=== PATIENT | female | born 1960 | race Caucasian/White ===

== ENCOUNTER → 2024-11-21 06:36 | Outpatient (REF) | payer MEDICARE, OTHER, SELFPAY | LOC: PAVMRI 06:36 | PROVIDERS: ATTENDING PHYSICIAN Physician Assistant; FAMILY PHYSICIAN Family Medicine Geriatric Medicine | DX: M54.16 Radiculopathy, lumbar region (principal) | CPT/HCPCS: 72148 ==

== ENCOUNTER → 2025-01-26 08:35 | Outpatient (REF) | payer MEDICARE, OTHER, SELFPAY | LOC: EMG 08:35 | PROVIDERS: ATTENDING PHYSICIAN Physician Assistant; FAMILY PHYSICIAN Family Medicine Geriatric Medicine | DX: R20.0 Anesthesia of skin (principal); M54.16 Radiculopathy, lumbar region | CPT/HCPCS: 95886; 95910 ==

== ENCOUNTER → 2025-02-09 10:33 | Outpatient (REF) | payer MEDICARE, OTHER, SELFPAY | LOC: RAD 10:33 | PROVIDERS: ATTENDING PHYSICIAN Physician Assistant; FAMILY PHYSICIAN Family Medicine Geriatric Medicine | DX: M79.605 Pain in left leg (principal) | CPT/HCPCS: 93971 ==

== ENCOUNTER → 2025-02-21 08:58 | Outpatient (REF) | payer MEDICARE, OTHER, SELFPAY | LOC: HWRCS 08:58 | PROVIDERS: ATTENDING PHYSICIAN Internal Medicine Cardiovascular Disease; FAMILY PHYSICIAN Family Medicine Geriatric Medicine | DX: R01.1 Cardiac murmur, unspecified (principal); Z76.89 Persons encountering health services in other specified circumstances | CPT/HCPCS: 93306 ==

== ENCOUNTER 2025-04-08 12:53 | Emergency (ER) | payer MEDICARE, OTHER, SELFPAY ==
[2025-04-08 13:04] VITALS: BP 117/70
--- NOTE | 2025-04-08 13:37 | ED.GENMED ---
History of Present Illness
General
Chief Complaint: Flank Pain
Source: patient
Exam Limitations: none
Time Seen by Provider: 04/08/25 13:24
Nursing documentation reviewed up to this point in time: agreed with
History of Present Illness
History of Present Illness:
Patient is a 64-year-old female with history hyperlipidemia, GERD who presents to the emergency department for evaluation of left flank pain, which began the night before last. The pain started as a sharp sensation, initially thought to be
musculoskeletal, and has persisted since, now characterized as a flank pain. It is constant but exacerbated by certain movements, resulting in a sharp pain. The pain is located in the back but radiates around to the front. She denies fever, nausea,
vomiting, diarrhea, or any radiation of pain to the legs. She has been having normal bowel movements and urination despite the discomfort. She denies any chest pain or shortness of breath.
She mentions a past history of kidney stones and suggests that this pain feels similar but she has not noticed any hematuria which she has had with past stones. She also has a history of diverticulitis.
Past History
Past History
ED Past Medical History: GERD, Hypercholesterolemia, Other (Kidney stones) and Other (aspergers)
ED Past Surgical History: Urological (Ureteroscopy) and Other (laparoscopy x 2)
Social History
Tobacco: Non-smoker
Alcohol: None
Drug: None
Living: with family
Review of Systems
Review of Systems
Allergies reviewed?: Yes
All Other Systems: ROS reviewed and negative except as documented in HPI and ROS
Phy Exam
Physical Exam
Physical Exam:
Vitals: Patient's vital signs are stable. Afebrile
General: Patient is well appearing, no acute distress. Nontoxic appearing
Skin: Warm and dry, no rashes or lesions
Head: Normocephalic, atraumatic
Eyes: Sclera nonicteric.
Throat: Protecting airway
Neck: Normal ROM, no cervical spine tenderness, no meningismus
Cardiac: Regular rate and rhythm, no murmurs. 2+ palpable radial pulses bilaterally
Pulm: Normal respiratory effort, no wheezes, rales, rhonchi heard on exam
.
Abdomen: Abdomen soft. Mild tenderness in left lower abdomen without rebound tenderness or guarding. No tenderness to McBurney's point. No CVA tenderness or rash.
Extremities: No evidence of cyanosis or edema
Neuro: AAOx3. Grossly intact.
Psychiatric: Normal affect.
Course
Orders/Labs/Results
Orders:
Orders
04/08/25 13:37
CMP [Comprehensive Metabolic Panel] Urgent
Complete Blood Count/With Diff Urgent
04/08/25 14:18
0.9% Sodium Chloride 1000 ml [Nss] 1,000 ml IV BOLUS
Ketorolac [Toradol] 15 mg IV NOW STA
04/08/25 14:27
Urinalysis Reflex To Culture Urgent
Date Specimen was Collected: 04/08/25
Time Specimen was Collected: 14:25
04/08/25 14:56
CT Abd/pelvis W Iv Cont Urgent
Comment:
Reason For Exam: Left flank pain
Abnormal Lab Results
04/08/25
13:37
Hgb 11.7 L g/dL
(12.0-16.0)
Hct 35.8 L %
(37.0-47.0)
MCV 80.6 L fL
(81.0-99.0)
MCH 26.4 L pg
(27.0-31.0)
MCHC 32.7 L g/dL
(33.0-37.0)
Monocytes % 9.5 H %
(1.7-9.3)
Chloride 109 H mmol/L
(98-107)
Glucose 107 H mg/dl
(70-99)
04/08/25 13:37
04/08/25 13:37
Vital Signs
Initial and Last Documented VS:
Initial Vital Signs
Temp Pulse Resp BP Pulse Ox
97.8 F 72 18 117/70 100
04/08/25 13:04 04/08/25 13:04 04/08/25 13:04 04/08/25 13:04 04/08/25 13:04
Last Documented Vital Signs
Temp Pulse Resp BP Pulse Ox
97.8 F 73 16 100/67 100
04/08/25 13:04 04/08/25 13:58 04/08/25 13:58 04/08/25 13:58 04/08/25 13:38
MDM/Problems Addressed
Differential Diagnosis Includes:
Not limited to: Nephrolithiasis, UTI, pyelonephritis, diverticulitis, muscle strain/spasm, herpes zoster, etc.
MDM/Problems Addressed:
64-year-old female presented with two days of intermittent left flank pain. She has a history of kidney stones and diverticulitis. Presenting symptoms not associated with fever, dysuria/hematuria, diarrhea, chest pain, sob. No known inciting
injury/trauma. The patient has stable vital signs and is afebrile on arrival. Physical exam as above. She has no CVA tenderness or evidence of rash to suggest zoster. Differential broad and includes renal colic, UTI, pyelonephritis, muscle
strain/spasm. Do not suspect PE or vascular catastrophe. ED plan: Labs, urinalysis. Will obtain CT scan with IV contrast t/o further evaluate for acute intra abdominal etiologies. Will treat pain and give IV fluids.
My independent review of the labs and UA is without clinically significant abnormalities, specifically no infection or presence of red blood cells in urine.
CT scan with IV contrast has no acute abnormalities noted on report, specifically no evidence of diverticulitis or obstructing renal calculi.
Given patient afebrile with no leukocytosis or evidence of diverticulitis on imaging / other infectious process - do not feel abx indicated. Symptoms possibly MSK in nature. Consideration of admission/observation was made due to the complexity/risk.
However, outpatient management is appropriate based on a reassuring work-up, stable vitals, symptom control, and follow-up reliability. Patient advised on the use of NSAIDs for pain management and provided with strict return precautions. Patient
comfortable with plan.
Chronic conditions affecting care:
History of kidney stones, history of diverticulitis
Acute Exacerbation and/or Progression of Chronic Illness:
N/A
*Radiology
Radiology exam reviewed: radiology read reviewed
*Pulse Oximetry
SaO2: 100
Oxygen Mode of Delivery: Room air
Patient hypoxic: no
*EKG
Interpreted by ED Provider?: NA
*Occupational Health Physiotherapist Interpretation
Rate: Occupational Health Physiotherapist- N/A
*Critical Care Note
Total Time (30-74mins, 75-104mins- exclusive of procedures): Not Applicable
ED Attending Note
-
Portions of this chart may have been created with voice recognition software.� Occasional wrong word or��sound alike� substitutions may have occurred due to the inherent limitations of voice recognition software.
Discharge Plan
Departure
Patient Disposition: Home (Routine Discharge)
Date of Disposition: 04/08/25
Time of Disposition: 17:51
Patient with high blood pressure during this ER visit?: No
Condition: Good
Covid-19: Not Applicable
Discharge Problem:
Left flank pain
Instructions: Flank Pain (DC), Abdominal pain in adults - ED discharge instructions
Prescriptions:
No Action
simvastatin 40 MG tablet
40 mg PO .QPM
aspirin [Lobo Chewable Aspirin] 81 MG tablet,chewable
81 mg PO DAILY
Ergocalciferol (Vitamin D2)
50,000 unit PO DIRECTED
Patient Comments:
1 capsule every week by oral route
pantoprazole 40 MG tablet,delayed release (DR/EC)
40 mg PO DAILY
finasteride [Propecia] 1 MG tablet
1 mg PO DAILY
biotin 5,000 MCG tablet,disintegrating
5,000 mcg PO DAILY
Referrals:
Jannet Mathur DO [Family Provider, Family Practice] - Follow up in 1 week
Activity Restrictions/Additional Instructions:
RETURN TO THE EMERGENCY DEPARTMENT ANY FEVERS, CHEST PAIN, SHORTNESS OF BREATH, INTRACTABLE NAUSEA/VOMITING, WORSENING PAIN, DIFFICULTY URINATING, OR ANY OTHER CONCERNS
- As discussed�your lab work and urinalysis showed no acute abnormalities today. You were given IV Toradol and IV fluids in the emergency department.
- Please follow-up with your primary care provider regarding incidental findings on CT scan.
- You should take Motrin/Tylenol over the next few days for pain. You can apply a lidocaine patch as well to the affected area. Avoid any activities that further aggravate symptoms. Stay well-hydrated.
-Follow-up with your primary care provider for further evaluation/management if symptoms persist/worsen
Monitor your symptoms closely and return to the emergency department with any acute worsening/new symptoms or any other concerns
Interventions
Interventions:
*Risk Screen - Suicide Last Done: 04/08/25 13:58
*General Assessment Last Done: 04/08/25 13:58
*Neglect/Abuse Screening Last Done: 04/08/25 13:58
*ED- Fall Risk Assessment Last Done: 04/08/25 13:58
*ED COVID-19 Vaccine History Last Done: 04/08/25 13:58
*Nursing Disposition Last Done: 04/08/25 18:09
QX-Yqudqr-Iwdhnomhey Assessment Last Done: 04/08/25 13:59
ED-Female Genitourinary Assessment Last Done: 04/08/25 13:59
Discharge Date and Time
Discharge Date/Time: 04/08/25 18:17
Print Language: WALLISIAN
[2025-04-08 13:48] LABS: % Basophils 1.3 % (0-2); % Eosinophils 1.7 % (0-6); % Immature Granulocytes 0.2 % (0-0.5); % Lymphocytes 28.7 % (20.5-51.1); % Monocytes 9.5 % (1.7-9.3); % Neutrophils 58.6 % (42.2-75.2); Absolute Basophils 0.1 10^3/uL (0-0.2); Absolute Eosinophils 0.1 10^3/uL (0-0.7); Absolute Lymphocytes 1.5 10^3/uL (1.2-3.4); Absolute Monocytes 0.5 10^3/uL (0.1-0.6); Absolute Neutrophils 3.2 10^3/uL (1.4-6.5); Hematocrit 35.8 % (37.0-47.0); Hemoglobin 11.7 g/dL (12.0-16.0); Mean Corp Hgb Conc. 32.7 g/dL (33.0-37.0); Mean Corpuscular Hgb 26.4 pg (27.0-31.0); Mean Corpuscular Volume 80.6 fL (81.0-99.0); Mean Platelet Volume 8.6 fL (7.4-10.4); Nucleated Red Blood Cells % 0 %; Platelet Count 331 10^3/uL (130-400); Red Blood Cell Count 4.44 10^6/uL (4.20-5.40); Red Cell Dist. Width 14.2 % (11.5-14.5); White Blood Cell Count 5.4 10^3/uL (4.8-10.8)
[2025-04-08 13:58] VITALS: BP 100/67
[2025-04-08 14:18] LABS: ALT (SGPT) 18 U/L (0-35); AST (SGOT) 20 U/L (14-36); Albumin 4.2 g/dl (3.5-5.0); Alkaline Phosphatase 74 U/L (38-126); Blood Urea Nitrogen 17 mg/dl (7-17); Calcium 9.7 mg/dl (8.4-10.2); Carbon Dioxide 23 mmol/L (22-30); Chloride 109 mmol/L (98-107); Glucose 107 mg/dl (70-99); Potassium 4.1 mmol/L (3.5-5.1); Sodium 141 mmol/L (135-145); Total Bilirubin 0.7 mg/dl (0.2-1.3); eGFR > 60.00
[2025-04-08] MEDS: NSS 1000 IV (14:25)
[2025-04-08] MEDS: TORADOL 15 MG IV (14:26)
[2025-04-08 14:36] LABS: Urine Albumin Negative (Neg - Trace); Urine Bilirubin Negative (Negative); Urine Character Clear (Clear); Urine Color Yellow; Urine Glucose Negative (Negative); Urine Ketone Negative (Negative); Urine Leukocyte Negative (Negative); Urine Nitrite Negative (Negative); Urine Occult Blood Negative (Negative); Urine Specific Gravity 1.015 (<1.030); Urine Urobilinogen Negative (Neg - 1+)
== END 2025-04-08 18:17 | disposition home or self-care (01) ==
LOC: EMR 12:53
PROVIDERS: Physician Assistant; EMERGENCY PHYSICIAN Emergency Medicine; FAMILY PHYSICIAN Family Medicine Geriatric Medicine
DX: R10.9 Unspecified abdominal pain (principal); E78.00 Pure hypercholesterolemia, unspecified; K21.9 Gastro-esophageal reflux disease without esophagitis; F84.5 Asperger's syndrome; K57.30 Diverticulosis of large intestine without perforation or abscess without bleeding; Z87.442 Personal history of urinary calculi
CPT/HCPCS: 99284; 96374; 96361; 74177; 80053; 81003; 85025; Q9967

== ENCOUNTER 2025-07-13 06:22 | Day surgery (SDC) | payer MEDICARE, OTHER, SELFPAY | END 2025-07-13 11:38 | disposition home or self-care (01) | LOC: GI 06:22 | PROVIDERS: ATTENDING PHYSICIAN Internal Medicine Gastroenterology | DX: Z12.11 Encounter for screening for malignant neoplasm of colon (principal); K57.30 Diverticulosis of large intestine without perforation or abscess without bleeding; K64.9 Unspecified hemorrhoids; K44.9 Diaphragmatic hernia without obstruction or gangrene; K31.7 Polyp of stomach and duodenum; R12 Heartburn | CPT/HCPCS: 43239; G0121; 88305 ==